=== PATIENT | male | born 1940 | race American Indian/Alaskan Native ===

== ENCOUNTER 2021-05-21 07:38 | Day surgery (SDC) | payer OTHER ==
[~2021-05-21 07:38] MED LIST: SODIUM CHLORIDE 0.9% 1000 ML 1,000 ML IV SCH
[2021-05-21] MEDS ORDERED: ONDANSETRON 4 MG/2 ML INJ ONE (08:03)
[2021-05-21] MEDS ORDERED: propofoL 200 MG/20 ML VIAL IV ONE (08:03)
[2021-05-21] MEDS ORDERED: fentaNYL 100 MCG/2 ML INJ ONE (08:03)
[2021-05-21] MEDS ORDERED: LIDOCAINE MPF (2%) 20 MG/1 ML VIAL 5 ML ONE (08:04)
[2021-05-21 08:20] LABS: Hematocrit 49.9 % (35.5-45.6); Hemoglobin 16.5 gm/dl (11.8-15.2); Mean Corpuscular HGB Conc 33 % (32-34); Mean Corpuscular Volume 89 fl (84-94); Platelet Count 234 K/mm3 (140-440); Red Blood Count 5.62 M/mm3 (3.65-5.03); Red Cell Distribution Width 13.9 % (13.2-15.2)
[2021-05-21] MEDS ORDERED: HYDROmorphone 1 MG/1 ML INJ IV PRN (08:29)
[2021-05-21] MEDS ORDERED: ONDANSETRON 4 MG/2 ML INJ IV PRN (08:29)
[2021-05-21] MEDS ORDERED: HYDROcodone/ACETAMINOPHEN 5-325 MG TAB PO PRN (08:29)
--- NOTE | 2021-05-21 08:29 | Anesthesia Day of Surgery ---
Anesthesia Day of Surgery - Day of Surgery Patient Examined: Yes Patient H&P Reviewed: Yes Patient is NPO: Yes
--- NOTE | 2021-05-21 08:29 | Anesthesia Consultation ---
Anesthesia Consult and Med Hx Date of service: 05/21/21 - Airway Anesthetic Teeth Evaluation: Dentures (upper and lower) ROM Head & Neck: Adequate Mental/Hyoid Distance: Adequate Mallampati Class: Class III Intubation Access Assessment: Possibly Difficult - Pre-Operative Health Status ASA Pre-Surgery Classification: ASA3 Proposed Anesthetic Plan: General - Pulmonary Hx Smoking: Yes (quit 40yrs ago) Hx Respiratory Symptoms: No (neg COVID test 05/12/21) Hx Sleep Apnea: No (CONSTANTINO PRE SCREEN LOW RISK) - Cardiovascular System Hx Hypertension: No Hx Heart Attack/AMI: No Hx Percutaneous Transluminal Coronary Angioplasty (PTCA): No Hx Peripheral Vascular Disease: No (DVT 6 wks ago; xarelto held 3 days. 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
[2021-05-21 08:30] LABS: INR 0.87 (0.87-1.13); Partial Thromboplastin Time 30.4 Sec. (24.2-36.6)
[2021-05-21] MEDS ORDERED: ceFAZolin/Water 2 GM/20 ML 2 GM/20 ML SYRINGE IV ONE (08:39)
[2021-05-21 09:13] LABS: Alanine Aminotransferase 12 units/L (7-56); Albumin 3.5 g/dL (3.9-5); BUN/Creatinine Ratio 8; Blood Urea Nitrogen 9 mg/dL (9-20); Calcium 9.2 mg/dL (8.4-10.2); Hemolysis Index 12
[2021-05-21] MEDS ORDERED: WATER FOR IRRIG STERILE 2000 ML IR ONE (09:17)
[2021-05-21] MEDS ORDERED: WATER FOR IRRIG STERILE 1,500 ML BOTTLE IR ONE (09:17)
[2021-05-21] MEDS ORDERED: PHENYLEPHRINE/NS 1,000 MCG/10 ML SYRINGE (OR USE) IV ONE (09:17)
[2021-05-21] MEDS ORDERED: GENTAMICIN 40 MG/ML VIAL 2 ML ONE (09:24)
--- NOTE | 2021-05-21 09:53 | Short Stay Summary ---
Short Stay Documentation Date of service: 05/21/21 - History H&P: obtained from office - Allergies and Medications Current Medications: Allergies No Known Allergies Allergy (Verified 05/19/21 14:33) Home Medications Medication Instructions Recorded Confirmed Last Taken Type Aspirin [Vazalore] 81 mg PO DAILY 05/19/21 05/19/21 Unknown History Atorvastatin 1 dose PO DAILY 05/19/21 05/19/21 Unknown History Finasteride [Proscar] 5 mg PO DAILY 05/19/21 05/19/21 Unknown History Multivit-Min/Iron/Folic Acid/K 1 each PO DAILY 05/19/21 05/19/21 Unknown History [Adults Multivitamin Tablet] Rivaroxaban [Xarelto] 20 mg PO QDAY 05/19/21 05/19/21 Unknown History Sennosides [Senna] 8.6 mg PO 3XW 05/19/21 05/19/21 Unknown History Vitamin D3 1 dose PO DAILY 05/19/21 05/19/21 Unknown History Active Medications Hydrocodone Bitart/Acetaminophen (Hydrocodone/Acetaminophen 5-325 Mg Tab) 2 each PO ONCE PRN PRN Reason: Pain, Moderate (4-6) Stop: 05/21/21 10:00 Hydromorphone HCl (Hydromorphone 1 Mg/1 Ml Inj) 0.5 mg IV Q10MIN PRN PRN Reason: Pain , Severe (7-10) Stop: 05/21/21 20:00 Sodium Chloride (Nacl 0.9% 1000 Ml) 1,000 mls @ 42 mls/hr IV DIRECT IMTIAZ Stop: 05/21/21 23:59 Ondansetron HCl (Ondansetron 4 Mg/2 Ml Inj) 4 mg IV ONCE PRN PRN Reason: Nausea And Vomiting Stop: 05/21/21 12:00 - Brief post op/procedure progress note Date of procedure: 05/21/21 Pre-op diagnosis: retention, psa 144 Post-op diagnosis: same Procedure: cysto, rpg, pus 20cc, prostate bx, spt, cystogram Anesthesia: GETA Surgeon: LINDSAY JENSEN Estimated blood loss: minimal Pathology: list (prostate cores) Specimen disposition: to lab Condition: stable - Hospital course Hospital course: chloe & adama on chart - Disposition Condition at discharge: Stable Disposition: 01 HOME / SELF CARE / HOMELESS Short Stay Discharge Plan Follow up with: [facility] [Primary Care Provider] - 7 Days
--- NOTE | 2021-05-21 10:09 | Ultrasound Report ---
Ultrasound Transrectal INDICATION: ELEVATED PSA. COMPARISON: None available. FINDINGS: Limited transrectal sonography of the pelvis was performed to guide biopsy of the prostate gland. Pro state gland volume is 18.5 cc, which is normal. No significant abnormality is identified. IMPRESSION: Limited pelvic sonography as above to guide transrectal prostate biopsy. Please see the report for th e procedure for further details. Signer Name: Sebastien Murray MD Signed: 05/21/2021 10:05 AM Workstation Name: [id number]
--- NOTE | 2021-05-21 10:17 | Operative Report ---
DATE OF SURGERY: 05/21/2021 PREOPERATIVE DIAGNOSES: Urinary retention, elevated PSA 144. POSTOPERATIVE DIAGNOSES: Urinary retention, elevated PSA 144. PROCEDURES: Cystoscopy, bilateral retrograde pyelograms, transrectal ultrasound (20 mL prostate) biopsy of prostate, cystogram, suprapubic catheter placement. SURGEON: Marv Vargas MD ANESTHESIA: General. ESTIMATED BLOOD LOSS: Minimal. FLUIDS: Crystalloid. COMPLICATIONS: No complications. INDICATIONS: This patient is a 80-year-old seen in the office with urinary retention due to multiple sclerosis. He had a suprapubic tube placed in 2009, fell out a year ago, and was unable to replace it. He has had a Solitario catheter exchanged every 4 to 6 weeks. On exam, now he has some mild meatal erosion and presents for replacement of his suprapubic tube. He is in a wheelchair. His nephew was present for the visit (Ernie). Also, of note, his PSA was 144. Risks, benefits, complications were explained. He has received medical clearance from the [employer]. I was able to discontinue his blood thinner and we will proceed. DESCRIPTION OF PROCEDURE: The patient was taken to the operative suite, placed in a supine position. After adequate general anesthesia, placed in a modified dorsal lithotomy position due to contracture. Cystoscopy was performed as noted. Mild urethral erosion. No strictures. Prostate high riding bladder neck. Bladder, no tumors or stones. He had some erythema on the right side. Bilateral retrograde pyelograms were obtained with an 8-[place] catheter and 8 mL of contrast. No filling defects or obstruction. Next, using a transrectal ultrasound probe, ultrasound of the prostate did not reveal any lesions. A template biopsy, it was 20 mL prostate size. Twelve core biopsy, 4 cores at the base, mid and apex of the prostate. Next, using a curved [place] retractor was placed in the urethra and tented the suprapubic area where his previous incision was. Bovie was used to make a small incision. Retractor was advanced onto the abdominal wall. Suture was used to connect it to a 20-[place] tip catheter was pulled out to the meatus. The stitch was cut. Cystoscopy followed the catheter back into the bladder where 10 mL of sterile water was placed in the balloon. Cystogram confirmed adequate position. No leak, 2-0 silk was used to secure the suprapubic catheter on the skin. Rectal exam was benign. Dressing was placed. He was extubated and taken to recovery room. He will go home on Bactrim and Isaban. TID: [id number] RECEIPT: [id number] VENANCIO/YASH
--- NOTE | 2021-05-21 10:26 | Fluoroscopy Report ---
INTRAOPERATIVE FLUOROSCOPY: RETROGRADE UROGRAPHY AND CYSTOGRAM INDICATION / CLINICAL INFORMATION: ELEVATED PSA WITH BPH, URINARY RETENTION. TECHNIQUE: Intraoperative spot images were obtained during the procedure. FINDINGS: Images show cystogram and bilateral retrograde urography See operative/procedure note by performing physician for full details. Fluoroscopy Time: 0.1 minutes. Fluoroscopy Images: 5. Signer Name: Alverto Booth MD Signed: 05/21/2021 10:21 AM Workstation Name: [id number]
[2021-05-21] MEDS ORDERED: ceFAZolin/Water 2 GM/20 ML 2 GM/20 ML SYRINGE IV NR (11:00)
[2021-05-21 12:56] VITALS: BP 131/69
--- NOTE | 2021-05-21 14:15 | Post Anesthesia Evaluation ---
- Post Anesthesia Evaluation Patient Participated: Yes Airway Patent: Yes Stable Respiratory Function: Yes Nausea/Vomiting: No Temp > 96.8F: Yes Pain Manageable: Yes Adequeate Hydration: Yes Anesthesia Complications: No
== END 2021-05-21 12:40 | disposition home or self-care (01) ==
LOC: OR 07:38
PROVIDERS: ATTEND Urology
DX: R33.8 Other retention of urine (principal); C61 Malignant neoplasm of prostate; R97.20 Elevated prostate specific antigen [PSA]; E78.00 Pure hypercholesterolemia, unspecified; M19.90 Unspecified osteoarthritis, unspecified site; E11.9 Type 2 diabetes mellitus without complications; Z79.899 Other long term (current) drug therapy; Z87.891 Personal history of nicotine dependence; Z79.82 Long term (current) use of aspirin; Z86.718 Personal history of other venous thrombosis and embolism; Z98.890 Other specified postprocedural states
CPT/HCPCS: 36415; 51102; 55700; 74420; 74430; 76872; 80053; 82962; 85027; 85610; 85730; 88305; C1758; J0690; J1580; J2370; J2405; J2704; J3010; J3490; J7030; Q9967; J7120; Q0162

== ENCOUNTER 2021-06-11 14:55 | Emergency (ER) | payer OTHER ==
[2021-06-11 14:58] VITALS: BP 124/51
--- NOTE | 2021-06-11 17:27 | Emergency Department Report ---
ED Male HPI - General Chief complaint: Medical Clearance Stated complaint: NEEDS CATHETER Time Seen by Provider: 06/11/21 15:05 Source: EMS Mode of arrival: Stretcher Limitations: No Limitations - History of Present Illness Initial comments: 80-year-old male with past medical history of multiple sclerosis who has had a suprapubic catheter since 2009 with recent diagnosis of prostate cancer (currently undergoing outpatient work-up) presents to the hospital complaining of bad home health nurse was unable to reinsert [address] ter removal. Patient had a new suprapubic catheter placed during surgical operation May 22. Today it was noted that the catheter appeared to be sutured in place. Suture was cut and catheter removed however, home health nurse was unable to replace the catheter. Patient presents returning of no complaints. Patient is bedbound and wheelchair dependent secondary to multiple sclerosis - Related Data Home Medications Medication Instructions Recorded Confirmed Last Taken Aspirin [Vazalore] 81 mg PO DAILY 05/19/21 05/21/21 05/20/21 Atorvastatin 1 dose PO DAILY 05/19/21 05/19/21 05/20/21 Finasteride [Proscar] 5 mg PO DAILY 05/19/21 05/19/21 05/20/21 Multivit-Min/Iron/Folic Acid/K 1 each PO DAILY 05/19/21 05/19/21 05/20/21 [Adults Multivitamin Tablet] Rivaroxaban [Xarelto] 20 mg PO QDAY 05/19/21 05/21/21 05/15/21 Sennosides [Senna] 8.6 mg PO 3XW 05/19/21 05/19/21 05/20/21 Vitamin D3 1 dose PO DAILY 05/19/21 05/19/21 05/20/21 Allergies Allergy/AdvReac Type Severity Reaction Status Date / Time No Known Allergies Allergy Verified 06/11/21 14:57 ED Review of Systems ROS: Stated complaint: NEEDS CATHETER Other details as noted in HPI Comment: All other systems reviewed and negative ED Past Medical Hx - Past Medical History Hx Liver Disease: No Hx Renal Disease: No - Medications Home Medications: Home Medications Medication Instructions Recorded Confirmed Last Taken Type Aspirin [Vazalore] 81 mg PO DAILY 05/19/21 05/21/21 05/20/21 History Atorvastatin 1 dose PO DAILY 05/19/21 05/19/2105/20/22 History Finasteride [Proscar] 5 mg PO DAILY 05/19/21 05/19/21 05/20/21 History Multivit-Min/Iron/Folic Acid/K 1 each PO DAILY 05/19/21 05/19/21 05/20/21 History [Adults Multivitamin Tablet] Rivaroxaban [Xarelto] 20 mg PO QDAY 05/19/21 05/21/21 05/15/21 History Sennosides [Senna] 8.6 mg PO 3XW 05/19/21 05/19/21 05/20/21 History Vitamin D3 1 dose PO DAILY 05/19/21 05/19/21 05/20/21 History ED Physical Exam - General Limitations: No Limitations - Other Other exam information: General: No acute distress Head: Atraumatic Eyes: normal appearance ENT: Moist mucous membranes Neck: Normal appearance, no midline tenderness Chest: Clear to auscultation bilaterally CV: Regular rate and rhythm Abdomen: Soft, suprapubic stoma noted with urine drainage Back: Normal inspection Extremity: Normal inspection, full range of motion Neuro: Alert O x 3, no facial asymmetry, speech clear, no gross motor sensory deficit Psych: Appropriate behavior Skin: No rash ED Course Vital Signs 06/11/21 14:56 Temperature 98 F Pulse Rate 70 Respiratory 20 Rate Blood Pressure 124/51 [Left] O2 Sat by Pulse 100 Oximetry - Procedure Description Procedures done: Suprapubic catheter insertion: Abdomen cleansed with Betadine, sterile gloves used, 18 Syriac Solitario catheter inserted into stoma and balloon inflated with 5mL normal saline. Mild bleeding at insertion. Positive drainage of urine into Solitario catheter bag ED Medical Decision Making - Medical Decision Making 80-year-old male presents to the hospital after suprapubic catheter was removed by home nurse and could not be reinserted. 18 for suprapubic catheter inserted without difficulty with inflation of 5 mL balloon with normal saline. Patient observed in positive urine drainage. I attempted to contact Dr. Vargas urology service however, the office is closed and there is not an answering service available to page them. Patient will be instructed to follow-up Critical Care Time: No Critical care attestation.: If time is entered above; I have spent that time in minutes in the direct care of this critically ill patient, excluding procedure time. ED Disposition Clinical Impression: Encounter for suprapubic catheter care, Multiple sclerosis, Prostate cancer Disposition: 01 HOME / SELF CARE / HOMELESS Is pt being admited?: No Does the pt Need Aspirin: No Condition: Stable Instructions: Suprapubic Catheter Home Guide Additional Instructions: Follow-up with your urologist. Return if symptoms worsen as indicated by your discharge instructions. [facility]: [facility]Other[facility] - 3-5 Days LINDSAY VARGAS MD [Staff Physician] - 3-5 Days Time of Disposition: 17:34
== END 2021-06-11 18:54 | disposition home or self-care (01) ==
LOC: ED 14:55
DX: Z48.813 Encounter for surgical aftercare following surgery on the respiratory system (principal); Z48.01 Encounter for change or removal of surgical wound dressing; G35 Multiple sclerosis; C80.1 Malignant (primary) neoplasm, unspecified
CPT/HCPCS: 99283

== ENCOUNTER 2021-06-18 08:32 | Outpatient (CLI) | payer OTHER ==
--- NOTE | 2021-06-18 10:10 | Cat Scan Report ---
CT ABDOMEN AND PELVIS WITHOUT CONTRAST HISTORY: PROSTATE CANCER COMPARISON: No relevant comparison TECHNIQUE: Axial CT images were obtained through the abdomen and pelvis without IV contrast. Sagittal and coronal reformatted images. All CT scans at this location are performed using CT dose reduction for ALARA by means of automated exposure control. FINDINGS: CT ABDOMEN: Lung Bases: There is a rounded airspace opacity containing air bronchograms in the right lower quadra nt measuring 4.8 x 3.3 cm. This has an inflammatory appearance and likely represents pneumonia. The r emainder of the lung bases are clear. Liver: No significant abnormality. Biliary: No significant abnormality. Spleen: No significant abnormality. Unenlarged. Pancreas: No significant abnormality. Adrenals: No significant abnormality. Kidneys: No significant abnormality. Lymphatics: No lymphadenopathy. Vasculature: No significant abnormality. Bowel/Peritoneum: No evidence for obstruction or focal inflammation. There appears to be narrowing of the proximal transverse colon without discrete mass which may represent peristalsis. Stricture could also be considered. There is moderate fecal matter in the colon otherwise. No free fluid, fluid mikaela ection or free air. Normal appendix. CT PELVIS: : The bladder is decompressed with a suprapubic catheter and demonstrates no gross abnormality. The prostate gland is normal size measuring 4.1 cm in diameter. Osseous Structures: Osteopenia. There appears to be diffuse cortical thickening and prominent trabecu lar markings throughout the left hemipelvis suggesting Paget's disease. No suspicious blastic bony le sions. Additional Findings: None IMPRESSION: Right lower lobe infiltrate concerning for pneumonia. Please correlate with the patient's clinical pr esentation. No evidence for metastatic disease to the abdomen or pelvis. 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 No obvious focal bone lesion. Signer Name: Martin Powell Jr, MD Signed: 06/18/2021 10:06 AM Workstation Name: [id number]
--- NOTE | 2021-06-18 13:04 | Nuclear Medicine Report ---
. NUCLEAR MEDICINE BONE SCAN, WHOLE BODY INDICATION / CLINICAL INFORMATION: C61. TECHNIQUE: mCi of Tc-99m MDP were injected IV. Images were obtained of the whole body. COMPARISON: Correlation made with CT done earlier today. FINDINGS: ARTICULAR STRUCTURES: Mild, relatively symmetric, periarticular activity which is likely degenerative . 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 SKELETAL LESIONS: None. SOFT TISSUES: Normal. KIDNEYS: Normal. ADDITIONAL FINDINGS: None. IMPRESSION: 1. No osseous metastatic disease identified. Signer Name: Alverto Booth MD Signed: 06/18/2021 12:59 PM Workstation Name: [id number]
== END 2021-06-18 08:33 | disposition home or self-care (01) ==
LOC: NM 08:32
PROVIDERS: ATTEND Urology
DX: C61 Malignant neoplasm of prostate (principal); M85.80 Other specified disorders of bone density and structure, unspecified site; J18.9 Pneumonia, unspecified organism
CPT/HCPCS: 74176; 78306; A9503